=== PATIENT | female | born 1985 | race African-American/Black ===

== ENCOUNTER 2020-05-17 12:33 | Emergency (ER) | payer OTHER ==
[~2020-05-17] VITALS: Ht 165.1 cm; Wt 88.9 kg
[2020-05-17 13:08] VITALS: Ht 165.1 cm; Wt 88.9 kg
[2020-05-17 17:28] VITALS: BP 114/77
== END 2020-05-17 15:13 | disposition home or self-care (01) ==
LOC: ED 12:33
DX: R07.89 Other chest pain (principal); K21.9 Gastro-esophageal reflux disease without esophagitis; I10 Essential (primary) hypertension